=== PATIENT | male | born 1980 | race Hispanic/Latino ===

== ENCOUNTER 2021-10-02 15:36 | Emergency (ER) | payer MEDICAID ==
[2021-10-02] VITALS (7 sets, daily range): BP systolic 118–156; BP diastolic 80–119
[~2021-10-02] VITALS: Ht 167.6 cm; Wt 90.9 kg
[~2021-10-02 15:36] MED LIST: AMOXICILLIN500 MG OR; AUGMENTIN875TAB PO; BACTRIM DS1 TAB PO; LORTAB 10 PO; LORTAB 5/3255 MG PO; NAPROSYN500 MG PO; NO; ULTRAM50 M1 PO
[2021-10-02] MEDS ORDERED: ULTRAM50 M1 PO ×2 (16:37→17:14)
[2021-10-02] MEDS ORDERED: PREDNISONE20 MG PO ×2 (16:37→17:14)
[2021-10-02] MEDS ORDERED: ZYRTEC10 MG PO ×2 (16:37→17:14)
[2021-10-02] MEDS ORDERED: KEFLEX500 MG PO ×2 (17:00→17:14)
== END 2021-10-02 17:14 | disposition home or self-care (01) ==
LOC: ED 15:36
DX: T63.481A Toxic effect of venom of other arthropod, accidental (unintentional), initial encounter (principal); F17.200 Nicotine dependence, unspecified, uncomplicated